=== PATIENT | male | born 1960 | race Two or more races ===

== ENCOUNTER → 2025-01-04 | Outpatient (CLI) | payer OTHER, MEDICAID, SELFPAY ==
--- NOTE | 2025-01-04 10:19 | XR_ITS ---
Examination: PA lateral chest 2 views TECHNIQUE: Upright PA lateral chest 2 views Date and time: January 04, 2025 1032 hours INDICATIONS: Preop FINDINGS: Normal heart size Pleural thickening along the left lateral thoracic wall. No pneumonia or pulmonary edema Moderate thoracic spondylosis IMPRESSION: No pneumonia or pulmonary edema
--- NOTE | 2025-01-04 10:19 | XR_ITS ---
Examination: Lumbar spine, 5 views Technique: Lumbar spine AP, lateral, coned lateral lower lumbar spine, bilateral obliques 5 views Exam date and time: January 04, 2025 1022 hours INDICATIONS: Lower back pain beginning 3 months ago. FINDINGS: Mild osteopenia Prominent lumbar spondylosis Chronic compression T12 No acute lumbar fracture Diffuse lumbar degenerative disc disease, advanced L5-S1 IMPRESSION: Diffuse lumbar degenerative disc disease, advanced L5-S1, with spinal stenosis
== END | disposition home or self-care (01) ==
PROVIDERS: PCP Internal Medicine Hospice and Palliative Medicine; Referring Provider Registered Nurse; Visit Provider Orthopaedic Surgery
DX: Z01.818 Encounter for other preprocedural examination (principal); M54.16 Radiculopathy, lumbar region
CPT/HCPCS: 71046; 72110